=== PATIENT | female | born 1980 | race Caucasian/White ===

== ENCOUNTER 2016-07-20 12:49 | Emergency (ER) | payer OTHER ==
[~2016-07-20] VITALS: Ht 152.4 cm; Wt 43.1 kg
[~2016-07-20 12:49] MED LIST: ARMOUR THYROID30 M1 PO; ARMOUR THYROID60 M1 PO; CIPRO500 MG PO; CLARITIN10 MG PO; CLONAZEPAM; CLONAZEPAM 0.50.5 M1 PO; DOXYCYCLINE 10100 MG PO; FLONASE 0.05%50 MCG NASAL; HYDROCODONE-AP1 EAC6 PO; IBUPROFEN 600600 M1 PO; IBUPROFEN 800800 M1 PO; KEFLEX500 MG PO; NORCO 5-325 TA1 EACH PO; SPIRONOLACTONE25 M1 GT; SPIRONOLACTONE50 MG PO; SYNTHROID25 MCG PO; ZPAK PO; [UNRECOGNIZED DRUG - OTHER]
[2016-07-20 13:10] VITALS: BP 116/76
[2016-07-20] MEDS ORDERED: KEFLEX500 MG PO (13:11)
[2016-07-20] MEDS ORDERED: PROAIR HFA8.5 GM INH (14:20)
[2016-07-20] MEDS ORDERED: TESSALON PERLE100 MG PO (14:20)
== END 2016-07-20 14:34 | disposition home or self-care (01) ==
LOC: ER 12:49
DX: J06.9 Acute upper respiratory infection, unspecified (principal); M79.1 Myalgia; R50.9 Fever, unspecified; F17.210 Nicotine dependence, cigarettes, uncomplicated; F10.99 Alcohol use, unspecified with unspecified alcohol-induced disorder; Z88.1 Allergy status to other antibiotic agents; Z88.2 Allergy status to sulfonamides

== ENCOUNTER 2017-12-19 18:24 | Emergency (ER) | payer OTHER ==
[~2017-12-19] VITALS: Ht 152.4 cm; Wt 42.2 kg
--- NOTE | ~2017-12-19 | EKG ---
[address] [place] [address] ELECTROCARDIOGRAM REPORT Name: NILAYEUSEBIO MADAN Room #: DEP [facility]#: [id number] Admission: 12/19/17 Attend Phys: Discharge: 12/19/17 Date of : 84 Report #: [id number] THIS REPORT FOR: //name// [facility] ED Test Date: 2017-12-19 Test Time: 19:05:46 Pat Name: EUSEBIO PEMBERTON Department: Room: Gender: F [employer] Salesperson: MZOOK : 1980 Requested By: Destin Almonte Order Number: [id number] MD: Momo Mullen Measurements Intervals [place] Rate: 83 P: 82 GA: 131 QRS: 69 QRSD: 86 T: 41 QT: 362 QTc: 426 Interpretive Statements Sinus rhythm Borderline T wave abnormalities Compared to ECG 12/29/2015 18:40:27 T-wave abnormality now present Electronically Signed On 12-20-2017 10:17:53 CDT by Momo Mullen [email or web address] <ELECTRONICALLY SIGNED> By: Momo Mullen MD, [facility] 12/20/17 1017 04 04 Momo Mullen MD, [facility] /EPI
[~2017-12-19 18:24] MED LIST changes: +PROAIR HFA8.5 GM INH; +TESSALON PERLE100 MG PO
[2017-12-19 18:59] LABS: URINE BILIRUBIN NEGATIVE (Negative); URINE BLOOD TRACE (Negative); URINE CLARITY CLEAR; URINE COLOR YELLOW; URINE GLUCOSE-RANDOM* NEGATIVE (Negative); URINE KETONES NEGATIVE (Negative); URINE NITRITE-REFLEX NEGATIVE (Negative); URINE PROTEIN (DIPSTICK) NEGATIVE (Negative); URINE UROBILINOGEN 0.2 E.U./dl (0.2-1.0)
[2017-12-19 19:02] LABS: URINE LEUKOCYTES-REFLEX 2+ (Negative)
[2017-12-19 19:09] LABS: CASTS None Seen /LPF (None Seen); CRYSTALS None Seen /LPF (None Seen); SQUAMOUS 4-10 Moderate /LPF (0-3); URINE RBC 0-2 Rare /HPF (0-2); WBC CLUMPS Few (None Seen)
[2017-12-19 19:41] LABS: ABSOLUTE NEUTROPHILS 4.8 thou/uL (1.4-8.2); BASOPHILS 0.6 % (0.0-2.0); EOSINOPHILS 1.2 % (0.0-3.0); HEMATOCRIT 41.8 % (37.0-47.0); HEMOGLOBIN 14.2 gm/dL (12.0-15.0); LYMPHOCYTES 26.4 % (24.0-44.0); MCH 32.1 pg (26.0-34.0); MCHC 33.8 g/dL (28.0-37.0); MCV 94.8 fL (80.0-100.0); MONOCYTES 6.7 % (1.0-8.0); PLATELET COUNT 265 thou/uL (150-400); POLYS 65.1 % (36.0-66.0); RBC 4.41 mil/uL (4.20-5.00); RDW 12.9 % (10.5-14.5); WBC 7.4 thou/uL (4.0-11.0)
[2017-12-19 19:49] LABS: ANION GAP 7 mmol/L (7-16); BUN 14 mg/dL (7-18); CALCIUM 9.3 mg/dL (8.5-10.1); CHLORIDE 103 mmol/L (98-107); CO2 25 mmol/L (21-32); CREATININE 0.8 mg/dL (0.6-1.0); GLUCOSE 86 mg/dL (74-106); SODIUM 135 mmol/L (136-145)
[2017-12-19 19:58] LABS: ALBUMIN 4.5 g/dL (3.4-5.0); SGOT 19 U/L (15-37); SGPT 22 U/L (30-65); TOTAL BILIRUBIN 0.4 mg/dL (<0.1-1.0); TOTAL PROTEIN 7.8 g/dL (6.4-8.2); TROPONIN-I <0.06 ng/mL (<0.06)
[2017-12-19] MEDS ORDERED: ZPAK PO (20:38)
[2017-12-19 20:51] VITALS: BP 126/88
== END 2017-12-19 20:52 | disposition home or self-care (01) ==
LOC: ER 18:24
PROVIDERS: Physician Assistant
DX: N39.0 Urinary tract infection, site not specified (principal); M62.838 Other muscle spasm; R42 Dizziness and giddiness; E03.9 Hypothyroidism, unspecified; M79.7 Fibromyalgia; F17.210 Nicotine dependence, cigarettes, uncomplicated; Z88.1 Allergy status to other antibiotic agents; Z88.2 Allergy status to sulfonamides

== ENCOUNTER 2020-11-25 19:57 | Emergency (ER) | payer OTHER ==
[~2020-11-25] VITALS: Ht 152.4 cm; Wt 45.8 kg
[2020-11-25] MEDS ORDERED: DOXYCYCLINE 10100 MG PO (22:01)
[2020-11-25] MEDS ORDERED: PROAIR HFA8.5 GM INH (22:01)
[2020-11-25 22:09] VITALS: BP 110/70
== END 2020-11-25 22:08 | disposition home or self-care (01) ==
LOC: ER 19:57
DX: J01.80 Other acute sinusitis (principal); Z20.822 Contact with and (suspected) exposure to COVID-19; B96.89 Other specified bacterial agents as the cause of diseases classified elsewhere; J98.01 Acute bronchospasm; F17.210 Nicotine dependence, cigarettes, uncomplicated; Z88.1 Allergy status to other antibiotic agents; Z88.2 Allergy status to sulfonamides; Z88.8 Allergy status to other drugs, medicaments and biological substances; Z79.899 Other long term (current) drug therapy